=== PATIENT | female | born 1980 | race Caucasian/White ===

== ENCOUNTER 2020-04-11 05:55 | Inpatient (IN) | payer BC, SELFPAY ==
[2020-04-11] VITALS (197 sets, daily range): BP systolic 69–135; BP diastolic 24–102; PULSE 58–146; TEMP 36.6–37.4; O2SAT 82–100; BMI 33.0
--- NOTE | 2020-04-11 06:23 | WPDANESEPP ---
Anes - Eval Pre Procedure Procedure: Labor epidural Date/Time: 04/11/20 06:23 Surgeon: Cyndie Preop Diagnosis: Abd pain with contractions Pre Op Diagnosis: IOL Patient Data Age: 39 Gender: F Height: Weight: Allergies Allergy/AdvReac Type Severity Reaction Status Date / Time HYDROCODONE BIT Allergy Unknown VOMITING Uncoded 03/21/20 12:38 OXYCODONE HCL Allergy Unknown VOMITING Uncoded 03/21/20 12:38 Home Medications Medication Instructions Recorded Confirmed Type PNV no.[id number] 1 tablet PO BID 03/21/20 03/21/20 History [ Gummies] ferrous sulfate 140 mg PO DAILY 03/21/20 03/21/20 History Patient hx anesthesia problems: none Family hx anesthesia problems: none PMFSH Past Medical History Medical History (Updated 04/11/20 @ 06:24 by Roc Daniel CRNA) Deviated septum Overweight (BMI 25.0-29.9) Family History Family History Other Unknown family medical history Social History Social History Substance use: never Spiritual care concerns: No Exam Day of Procedure 04/11/20 06:23 Patient weight: normal Neurological: alert and oriented
[2020-04-11 06:48] LABS: Basophils Percent Auto 0.4 % (0.2-1.2); Eosinophils Percent Auto 0.4 % (0-4.4); Hematocrit 29.7 % (37.0-47.0); Hemoglobin 10.1 g/dL (12.0-15.0); Immature Granulocyte Absolute 0.04 K/mm3 (0.00-0.031); Immature Granulocyte Percent A 0.5 % (0-0.5); Lymphocytes Absolute Auto 1.62 K/mm3 (0.9-3.2); Lymphocytes Percent Auto 21.1 % (18.3-44.2); Mean Corpuscular Hemoglobin 32.2 pg (26-34); Mean Corpuscular Volume 94.6 fl (80-100); Mean Platelet Volume 10.9 fl (7.4-10.4); Monocytes Absolute Auto 0.5 K/mm3 (0.1-0.6); Monocytes Percent Auto 6.9 % (2.6-8.5); Neutrophils Absolute Auto 5.4 K/mm3 (1.3-6.7); Neutrophils Percent Auto 70.7 % (45.5-73.1); Platelet Count Result 159 k/mm3 (150-375); Red Blood Count 3.14 M/mm3 (4.2-5.4); Red Cell Distribution Width 13.5 % (11.5-14.5); White Blood Count 7.7 K/mm3 (4.5-10.0)
--- NOTE | 2020-04-11 07:01 | LDADM ---
This patient, Vania Feliz, was admitted to Labor/Delivery/Recovery 103 on 04/11/20 at 05:55. Plans for labor, pain management and were discussed with patient. Patient/family oriented to hospital policies and general routines including ID bracelet, bed and alarms, visiting hours, pain management, procedures, bathroom and other care routines, personal items, smoking policy, room service/diet and guest tray routines, security routines, call light, and visiting hours. Patient/Family are encouraged to report perceived risks to care and to ask questions if they do not understand what they are told or what they should do. See OBIX for further documentation.
[2020-04-11] MEDS: LACTATED RINGERS 1,000 ML 125 ML IV CONT ×3 (07:47→17:29)
[2020-04-11] MEDS: OXYTOCIN 30 UNITS/NS 500 ML 30 UNITS/500 ML BAG IV CONT (08:23)
--- NOTE | 2020-04-11 10:14 | WPDOBADMIT ---
Obstetrics - Admit Note Admission Note: 39 y/o @ 39w1d here for elective induction of labor. History of growth restriction. VSS Contractions regular FHR category 1 Cervix 1/thick/-2 AROM small amount of clear odorless fluid. record reviewed. No pertinent additions to the history and/or any subsequent changes in the physical findings that are not consistent with the expected course of the were found. Additions to the history and/or subsequent changes in the physical findings follow. None.
--- NOTE | 2020-04-11 21:28 | P.PCNOB_ITS ---
OB - Delivery Note Procedure Delivery date: 04/11/20 Procedure: H/O IUGR. . Induction method: per pitocin protocol Delivery monitor: external FHT and internal uterine Episiotomy description: None Laceration description: None Estimated blood loss (mL): 86 Anesthesia type: Epidural [place] Baby Date of : 04/11/20 Time of : 21:18 Weeks of gestation at delivery: 39 gender: Female presentation: vertex position: Right Occiput Anterior score one minute: 9 score five minutes: 9
[2020-04-11] MEDS: OXYTOCIN 30 UNITS/NS 500 ML 30 UNITS/500 ML BAG 125 UNITS IV CONT (21:52)
[2020-04-11] MEDS: BENZOCAINE 20% AER SPR (*SP) 56 GM CAN 1 SPRAY TOPICAL (23:29)
[2020-04-11] MEDS: WITCH HAZEL 40 PADS 1 PAD TOPICAL (23:29)
--- NOTE | 2020-04-12 00:40 | PC.NURSE ---
04/11/2020 at 0003. Patient transferred to post room # via wheelchair to room 282. Support person present. Oriented to unit, room, information board, rooming in, admission packet and security measures. Patient verbalizes understanding.
[2020-04-12 05:36] LABS: Hematocrit 27.3 % (37.0-47.0); Hemoglobin 9.2 g/dL (12.0-15.0)
--- NOTE | 2020-04-12 08:15 | PC.NURSE ---
PT introductions made and plan of care discussed per post , pain management, bottle feeding, daily care activities. PT verbalized understanding of such care.
--- NOTE | 2020-04-12 08:33 | WPDANLDPN2 ---
Anes-Prog Note L&D Date/Time: 04/12/20 08:33 Comfortable throughout: labor and delivery Neuraxial method: epidural Epidural/Spinal procedure site: clean & non-tender Neuro status: Neuro function grossly intact. Cardiovascular status: normal Respiratory status: normal Airway patency: baseline Mental status: baseline Post-Op hydration status: normal Vital Signs: Last Vital Signs Temp 37.4 C 04/11/20 22:00 Pulse 66 04/11/20 23:31 BP 105/59 L 04/11/20 23:31 Pulse Ox 99 04/11/20 23:30 Pain score (VAS): 0/10. Patient resting in bed at time of assessment, appears comfortable. Support person at bedside. All questions answered, no additional concerns at time of assessment. I/O: Intake & Output 04/11/20 04/12/20 04/12/20 23:59 07:59 15:59 Intake Total 2000 Output Total 634 Balance 1366 Post-procedural complaints: none Patient feedback: Patient satisfied with anesthetic care.
--- NOTE | 2020-04-12 09:31 | P.PNOB_ITS ---
OB - PN: Subj Subjective Date/time seen: 04/12/20 09:31 OB - PN: Obj Data Labs CBC & Chem 7: 04/12/20 04:28 Labs: Laboratory Results - last 24 hr 04/12/20 04:28 Hgb 9.2 L Hct 27.3 L OB - PN A/P Plan day: 1 Plan: routine care Time Spent With Patient Time: Total time spent is greater than 50% in coordination of care (as document ed) at patient's floor/unit and/or counseling patient: Time with patient: less than 15 minutes Review of Systems Review of Systems: All systems reviewed & are unremarkable except as noted in HPI and below Exam Const: General: comfortable Resp: Effort & Inspection: normal respiratory effort Cardio: Rate: regular rate GI: Auscultation: normal bowel sounds Psych: Appearance: grossly normal Affect: normal affect Attitude: cooperative Judgement: Good judgement present (Psych)
[2020-04-12] MEDS: IBUPROFEN 600 MG TABLET PO ×2 (09:42→15:47)
[2020-04-12] MEDS: POLYSACCHARIDE IRON COMPLEX 150 MG CAPSULE PO ×2 (09:42→15:47)
[2020-04-12] MEDS: DOCUSATE SODIUM 100 MG CAPSULE PO ×2 (09:42→15:47)
[2020-04-12 09:45] VITALS: BP 102/77; PULSE 77; RESP 18; TEMP 37.3; O2SAT 100
[2020-04-12] MEDS: ACETAMINOPHEN 325 MG TABLET 650 MG PO (15:45)
[2020-04-12 18:30] VITALS: BP 105/70; PULSE 71; RESP 18; TEMP 36.8; O2SAT 97
--- NOTE | 2020-04-12 19:21 | PC.NURSE ---
April 12, 2020 at 1920. Patient viewed the discharge video Mother & Baby Care, The First Two Weeks . Patient was given the opportunity and encouraged to ask questions. Patient verbalized understanding of information shared and has been given the mother/baby guide for home reference.
[2020-04-13 07:30] VITALS: BP 110/73; PULSE 66; RESP 16; TEMP 37.1; O2SAT 98
--- NOTE | 2020-04-13 07:30 | PC.NURSE ---
PT introductions made and plan of care discussed per post , pain management, bottle feeding, daily care activities and pending discharge to home. PT verbalized understanding of such care.
--- NOTE | 2020-04-13 07:42 | P.PNOB_ITS ---
OB - PN: Subj Subjective Date/time seen: 04/13/20 07:42 Patient comments: no complaints, pain well controlled and other (Lochia similar to menses) [place] baby status: doing well OB - PN: Obj Data Labs CBC & Chem 7: 04/12/20 04:28 OB - PN A/P Plan day: 2 (s/p vaginal delivery, doing well) Plan: routine care, discharge home and other (Follow up in office in 4 weeks) Time Spent With Patient Time: Total time spent is greater than 50% in coordination of care (as documented) at patient's floor/unit and/or counseling patient: Exam Const: General: no acute distress GI: Inspection: other (Fundus firm and nontender below umbilicus) GI Palp: Yes Soft to palpation and No Tenderness to palpation present (GI) Extrem: General: no edema
[2020-04-13 09:00] VITALS: PULSE 66; RESP 16; O2SAT 98
[2020-04-13] MEDS: POLYSACCHARIDE IRON COMPLEX 150 MG CAPSULE PO (09:14)
[2020-04-13] MEDS: ACETAMINOPHEN 325 MG TABLET 650 MG PO (09:14)
[2020-04-13] MEDS: DOCUSATE SODIUM 100 MG CAPSULE PO (09:14)
[2020-04-13] MEDS: IBUPROFEN 600 MG TABLET PO (09:15)
[2020-04-13 10:06] LABS: Rapid Plasma Reagin Non-Reactive (NonReactive)
--- NOTE | 2020-04-13 10:45 | PC.NURSE ---
PT received discharge instructions per protocol and verbalized understanding of such instructions.
--- NOTE | 2020-04-13 11:12 | PC.NURSE ---
PT discharged to home ambulatory accompanied by spouse and to waiting car. Follow up appts confirmed
--- NOTE | 2020-05-07 09:52 | PM.OBDSVD ---
DS: Admitting Diagnosis Admitting Diagnosis Admitting Diagnosis: IOL DS: Discharge Diagnosis Discharge Diagnosis (1) Vaginal delivery: Code(s): O80 - Encounter for full-term uncomplicated delivery Status: Acute OB - DS: Summary OB Procedures : None OB Procedures Intrapartum: Spontaneous Vag Delivery OB Procedures: : None Time Spent with Patient Time attestation: Total time spent providing and/or coordinating discharge services: DS: Data Data Completed and Pending Completed studies during hospitalization: Pending at discharge 04/11/20 08:06 Surgical [PTH] Routine Discharge Plan Discharge Attending physician on discharge: Stephen Agee Consulting providers: Bette Vaughn ; Tea Godoy Discharging Clinician: Kaylee Arambula Patient Disposition: Home, Self-Care Activity: may shower and pelvic rest Diet: regular Discharge Instructions: Education: Mom and Baby Guide Given to: Mother Follow-Up: Call your delivering provider's office for an appointment to be seen in: 6 Weeks Mom and baby should come to the [facility] for the follow-up appointment. Appointment Date/Time: April 15, 2020 at 8:00 am What to expect at your follow-up visit: Blood Pressure Check Call [phone] if you are unable to keep your appointment time. BREAST CARE: * Wear a snug supportive bra. * For engorgement discomfort: Bottle Feeding: * May apply ice packs PERINEAL CARE: * Until bleeding stops, use your jose bottle after urinating * Change your pad frequently throughout the day * You may take sitz baths several times a day (fill your bathtub with warm water and soak for 20 minutes.) Do NOT bathe in the water * No tub baths until seen by your physician - You may shower ACTIVITY: * Rest as much as possible. * Do not exercise or lift anything heavier than your baby (such as laundry or other children.) * Avoid stairs or driving as much as possible. * Do not put anything into the vagina. No douching, tampons, or sexual activity until seen by physician. NOTIFY PHYSICIAN IF YOU HAVE ANY QUESTIONS OR IF ANY OF THE FOLLOWING SYMPTOMS OCCUR: * If your perineum becomes red, swollen, or more painful than what you have experienced in the hospital. * If your vaginal bleeding becomes foul smelling. * If your vaginal bleeding becomes more heavy than a period or if your bleeding changes from pink to bright red. However, you may pass an occasional walnut-sized clot once or twice for the first week . * If you experience a sharp, shooting pain in you calves. * If you discover a hard, reddened area on your breast or if you experience flu-like symptoms. If you have a fever of 100.4 or greater DIET: * Eat regular, well-balanced meals. * Drink plenty of fluids daily. If , drink to thirst. Patient Instructions: Antibiotic Form Stand Alone Forms: General Discharge Information Follow-up/Referrals: Tea Godoy CNM [Certified Nurse Track Manager] - 4 Weeks Discharge Medications: New ibuprofen 600 mg Tablet 600 mg PO Q6H PRN (Reason: Cramping) Qty: 60 RF: 0 Continued ferrous sulfate 140 mg (45 mg iron) Tablet Extended Release 140 mg PO DAILY RF: 0 Gummies 400 mcg-35 mg- 25 mg-5 mg Tablet,Chewable 1 tablet PO BID RF: 0 Date of admission: 04/11/20 05:55 Primary Care Provider: PHYSICIAN,INSOLE AND OUTSOLE SPLITTER Admitting Provider: Stephen Agee Discharge Date/Time: 04/13/20 11:12 Attending physician on admission: Kaylee Arambula
== END 2020-04-13 11:12 | disposition home or self-care (01) | DRG 807 ==
LOC: ANHLDR 21:32 → ANHOB2 04-13 07:44 → ANHLDR 04-15 11:48 → ANHOB2 04-15 11:48
PROVIDERS: Advanced Practice Midwife; Admitting Provider Obstetrics & Gynecology; Visit Provider Obstetrics & Gynecology
DX: O76 Abnormality in fetal heart rate and rhythm complicating labor and delivery (principal); Z37.0 Single live birth; O99.02 Anemia complicating childbirth; O69.81X0 Labor and delivery complicated by cord around neck, without compression, not applicable or unspecified; Z3A.39 39 weeks gestation of pregnancy; D64.9 Anemia, unspecified
CPT/HCPCS: 36415; 85014; 85018; 85025; 86592; 86850; 86900; 86901; 88307; A9270; J2590; J2795; J7120

== ENCOUNTER 2023-10-24 10:44 | Outpatient (CLI) | payer BC, SELFPAY ==
--- NOTE | ~2023-10-24 | MMUS_ITS ---
EXAMINATION: MM diagnostic giana BI w parul, US breast BI complete HISTORY: Left breast 3:00 lump in the clinical breast examination TECHNIQUE: ML, MLO and CC 3-D tomosynthesis images of both breasts were performed and synthetic 2-D i mages were generated. CAD analysis was submitted and interpreted. High resolution complete bilateral breast ultrasound examination including all 4 quadrants and subareolar areas was performed. COMPARISON: None BREAST PARENCHYMAL COMPOSITION: The breasts are extremely dense, which lowers the sensitivity of mamm ography. FINDINGS: MAMMOGRAPHIC FINDINGS: No suspicious mass or architectural distortion, malignant calcification, skin thickening or retractio n is detected. ULTRASOUND: No suspicious mass or shadowing, cyst or other significant sonographic abnormality of either breast i s detected. IMPRESSION: 1. No mammographic or sonographic evidence of malignancy 2. Routine annual mammographic screening is recommended, with supplemental ultrasound as clinically a ppropriate considering the dense stroma 3. Negative mammogram and ultrasound examination do not preclude further evaluation of any clinically suspicious palpable abnormality. BI-RADS Category 1: Negative Reviewed, dictated and finalized at location [facility] IMPRESSION: 1. No mammographic or sonographic evidence of malignancy 2. Routine annual mammographic screening is recommended, with supplemental ultr asound as clinically appropriate considering the dense stroma 3. Negative mammogram and ultrasound examination do not preclude further evalua tion of any clinically suspicious palpable abnormality. BI-RADS Category 1: Negative
== END 2023-10-24 10:45 | disposition home or self-care (01) ==
PROVIDERS: Visit Provider Nurse Practitioner
DX: N63.0 Unspecified lump in unspecified breast (principal); N63.20 Unspecified lump in the left breast, unspecified quadrant
CPT/HCPCS: 76641; 77062; 77066; G0279